=== PATIENT | male | born 1950 | race Caucasian/White ===

== ENCOUNTER 2017-10-31 17:56 | Inpatient (IN) | payer OTHER ==
[~2017-10-31] VITALS: Ht 172.7 cm; Wt 91.3 kg
[2017-10-31] MEDS ORDERED: TRIH2TAB3 PO (18:25)
[2017-10-31] MEDS ORDERED: LOSA1TAB42 PO (18:25)
[2017-10-31] MEDS ORDERED: HALO5TAB8 PO (18:25)
[2017-10-31] MEDS ORDERED: SERT50TA12 PO (18:25)
[2017-10-31] MEDS ORDERED: LURA80TA PO (18:25)
[2017-10-31] MEDS ORDERED: SIMV20TA6 PO (18:25)
[2017-10-31] MEDS ORDERED: FENO145T20 PO (18:25)
[2017-10-31] MEDS ORDERED: AMLO5TAB2 PO (18:25)
[2017-10-31] MEDS ORDERED: ASPI-1169 PO (18:25)
[2017-10-31 20:00] VITALS: BP 117/84
[2017-10-31] MEDS ORDERED: ACETAMINOPHEN 325 MG TABLET PO PRN (20:00)
[2017-10-31] MEDS ORDERED: MAGNESIUM HYDROXIDE 30 ML UDC PO PRN (20:00)
[2017-10-31] MEDS ORDERED: MAG HYDROX/AL HYDROX/SIMETH 30 ML UDC PO PRN (20:00)
[2017-10-31] MEDS: SIMVASTATIN 20 MG TABLET PO SCH (21:06)
[2017-10-31] MEDS: LORAZEPAM 0.5 MG TABLET PO PRN (21:06)
[2017-10-31] MEDS: ZOLPIDEM TARTRATE 5 MG TABLET PO PRN (22:14)
[2017-11-01] MEDS: LORAZEPAM 0.5 MG TABLET PO PRN (05:17)
[2017-11-01 07:16] LABS: BASOPHILS % (AUTO) 0.4 % (0.0-2.0); EOSINOPHILS # (AUTO) 0.1 /CMM (0.0-0.7); EOSINOPHILS % (AUTO) 1.7 % (0.0-6.0); HEMATOCRIT 40 % (39-51); HEMOGLOBIN 13.8 g/dL (13.5-17.5); LYMPHOCYTES # (AUTO) 2.3 /CMM (0.8-4.8); LYMPHOCYTES % (AUTO) 28.3 % (20.0-44.0); MEAN CORPUSCULAR HEMOGLOBIN 32 PG (26.0-33.0); MEAN CORPUSCULAR HGB CONC 35 g/dl (31.0-36.0); MEAN CORPUSCULAR VOLUME 91 fL (80-96); MONOCYTES # (AUTO) 0.8 /CMM (0.1-1.30); MONOCYTES % (AUTO) 9.2 % (2.0-12.0); NEUTROPHILS % (AUTO) 60.4 % (43.0-81.0); PLATELET COUNT (AUTO) 244 /CMM (150-450); RDW COEFFICIENT OF VARIATION 13.6 (11.5-15.0); RED BLOOD CELL COUNT(AUTO) 4.35 MIL/uL (4.5-6.0); WHITE BLOOD COUNT (AUTO) 8.2 K/uL (4.3-11.0)
[2017-11-01 07:32] LABS: ALBUMIN 3.7 g/dL (3.4-5.0); BILIRUBIN,TOTAL 0.9 mg/dL (0.2-1.0); CREATININE 0.9 mg/dL (0.6-1.3); POTASSIUM 3.3 mmol/L (3.5-5.1); TOTAL PROTEIN, SERUM 7.2 g/dL (6.4-8.2)
[2017-11-01 07:38] LABS: CHOLESTEROL 131 mg/dL (<200); HDL CHOLESTEROL 37 mg/dL (40-60); LDL 80 mg/dL (0-99); TRIGLYCERIDES 92 mg/dL (30-150)
[2017-11-01 08:08] VITALS: BP 160/95
[2017-11-01] MEDS: FENOFIBRATE NANOCRYS (145 MG) 145 MG TABLET PO SCH (08:38)
[2017-11-01] MEDS: HYDROCHLOROTHIAZIDE 25 MG TABLET PO SCH (08:39)
[2017-11-01] MEDS: LOSARTAN POTASSIUM 50 MG TABLET PO SCH (08:39)
[2017-11-01] MEDS: ASPIRIN 81 MG TAB.CHEW PO SCH (08:39)
[2017-11-01] MEDS: AMLODIPINE BESYLATE 5 MG TABLET PO SCH (08:39)
[2017-11-01] MEDS ORDERED: POTASSIUM CHLORIDE 20 MEQ TAB.PRT.SR PO SCH ×2 (10:00→11:30)
[2017-11-01] MEDS: SERTRALINE HCL 50 MG TABLET PO SCH (11:16)
[2017-11-01] MEDS: TRIHEXYPHENIDYL HCL 2 MG TABLET PO SCH ×2 (11:16→16:45)
[2017-11-01] MEDS: HALOPERIDOL 5 MG TABLET PO SCH ×3 (12:50→21:10)
[2017-11-01 16:15] VITALS: BP 155/78
[2017-11-01 16:23] VITALS: BP 155/78
[2017-11-01 20:00] VITALS: BP 153/88
[2017-11-01] MEDS: ZOLPIDEM TARTRATE 5 MG TABLET PO PRN (23:01)
[2017-11-01] MEDS: SIMVASTATIN 20 MG TABLET PO SCH (23:01)
[2017-11-02] MEDS: LORAZEPAM 0.5 MG TABLET PO PRN ×2 (00:37→10:05)
[2017-11-02 07:02] LABS: CALCIUM, SERUM 9.4 mg/dL (8.5-10.1); CREATININE 0.9 mg/dL (0.6-1.3); POTASSIUM 3.7 mmol/L (3.5-5.1)
[2017-11-02 08:00] VITALS: BP 145/96
[2017-11-02] MEDS: ASPIRIN 81 MG TAB.CHEW PO SCH (08:54)
[2017-11-02] MEDS: FENOFIBRATE NANOCRYS (145 MG) 145 MG TABLET PO SCH (08:54)
[2017-11-02] MEDS: HALOPERIDOL 5 MG TABLET PO SCH ×4 (08:54→20:51)
[2017-11-02] MEDS: TRIHEXYPHENIDYL HCL 2 MG TABLET PO SCH ×2 (08:54→17:29)
[2017-11-02] MEDS: AMLODIPINE BESYLATE 5 MG TABLET PO SCH (08:55)
[2017-11-02] MEDS: HYDROCHLOROTHIAZIDE 25 MG TABLET PO SCH (08:55)
[2017-11-02] MEDS: LOSARTAN POTASSIUM 50 MG TABLET PO SCH (08:55)
[2017-11-02] MEDS: SERTRALINE HCL 50 MG TABLET PO SCH (08:56)
[2017-11-02 16:00] VITALS: BP 147/76
[2017-11-02] MEDS: SIMVASTATIN 20 MG TABLET PO SCH (21:02)
[2017-11-02] MEDS: ZOLPIDEM TARTRATE 5 MG TABLET PO PRN (21:33)
[2017-11-03 07:21] LABS: CALCIUM, SERUM 9.4 mg/dL (8.5-10.1); CREATININE 0.9 mg/dL (0.6-1.3); POTASSIUM 3.7 mmol/L (3.5-5.1)
[2017-11-03 08:18] VITALS: BP 145/78
[2017-11-03] MEDS: SERTRALINE HCL 50 MG TABLET PO SCH (09:01)
[2017-11-03] MEDS: TRIHEXYPHENIDYL HCL 2 MG TABLET PO SCH ×2 (09:01→17:54)
[2017-11-03] MEDS: HALOPERIDOL 5 MG TABLET PO SCH ×4 (09:02→21:29)
[2017-11-03] MEDS: AMLODIPINE BESYLATE 5 MG TABLET PO SCH (09:02)
[2017-11-03] MEDS: ASPIRIN 81 MG TAB.CHEW PO SCH (09:02)
[2017-11-03] MEDS: FENOFIBRATE NANOCRYS (145 MG) 145 MG TABLET PO SCH (09:02)
[2017-11-03] MEDS: HYDROCHLOROTHIAZIDE 25 MG TABLET PO SCH (09:02)
[2017-11-03] MEDS: LOSARTAN POTASSIUM 50 MG TABLET PO SCH (09:04)
[2017-11-03 16:00] VITALS: BP 122/62
[2017-11-03 20:16] VITALS: BP 148/88
[2017-11-03] MEDS: SIMVASTATIN 20 MG TABLET PO SCH (21:29)
[2017-11-04] MEDS: LORAZEPAM 0.5 MG TABLET PO PRN ×2 (03:18→14:44)
[2017-11-04 07:54] LABS: CALCIUM, SERUM 9.4 mg/dL (8.5-10.1); CREATININE 0.9 mg/dL (0.6-1.3); POTASSIUM 3.5 mmol/L (3.5-5.1)
[2017-11-04 08:04] VITALS: BP 142/82
[2017-11-04] MEDS: TRIHEXYPHENIDYL HCL 2 MG TABLET PO SCH ×2 (08:18→16:30)
[2017-11-04] MEDS: ASPIRIN 81 MG TAB.CHEW PO SCH (08:19)
[2017-11-04] MEDS: LOSARTAN POTASSIUM 50 MG TABLET PO SCH (08:19)
[2017-11-04] MEDS: HALOPERIDOL 5 MG TABLET PO SCH ×3 (08:19→16:30)
[2017-11-04] MEDS: FENOFIBRATE NANOCRYS (145 MG) 145 MG TABLET PO SCH (08:19)
[2017-11-04] MEDS: AMLODIPINE BESYLATE 5 MG TABLET PO SCH (08:19)
[2017-11-04] MEDS: SERTRALINE HCL 50 MG TABLET PO SCH (08:19)
[2017-11-04] MEDS: HYDROCHLOROTHIAZIDE 25 MG TABLET PO SCH (08:19)
[2017-11-04 16:00] VITALS: BP 123/71
[2017-11-04] MEDS ORDERED: TETANUS,DIPHTHERIA TOXD PED/PF 0.5 ML VIAL IM ONE (16:00)
[2017-11-04] MEDS ORDERED: LIDOCAINE HCL/PF 1% 30 ML SDV IJ ONE (16:21)
[2017-11-04] MEDS: AMOX/CLAVULANATE 875 MG TABLET PO SCH (16:30)
[2017-11-04] MEDS: NEOMY SULF/BACITRAC ZN/POLY 15 GM TUBE TP SCH (16:37)
[2017-11-04 19:32] VITALS: BP 141/78
[2017-11-04] MEDS: SIMVASTATIN 20 MG TABLET PO SCH (21:18)
[2017-11-04] MEDS: ZOLPIDEM TARTRATE 5 MG TABLET PO PRN (21:18)
[2017-11-05] MEDS: LORAZEPAM 0.5 MG TABLET PO PRN (01:56)
[2017-11-05 07:17] LABS: CALCIUM, SERUM 9.1 mg/dL (8.5-10.1); CREATININE 0.9 mg/dL (0.6-1.3); POTASSIUM 3.4 mmol/L (3.5-5.1)
[2017-11-05 08:00] VITALS: BP 144/78
[2017-11-05] MEDS: TRIHEXYPHENIDYL HCL 2 MG TABLET PO SCH ×4 (08:35→20:32)
[2017-11-05] MEDS: SERTRALINE HCL 50 MG TABLET PO SCH (08:36)
[2017-11-05] MEDS: ASPIRIN 81 MG TAB.CHEW PO SCH (08:36)
[2017-11-05] MEDS: FENOFIBRATE NANOCRYS (145 MG) 145 MG TABLET PO SCH (08:36)
[2017-11-05] MEDS: HALOPERIDOL 5 MG TABLET PO SCH ×4 (08:36→20:32)
[2017-11-05] MEDS: AMOX/CLAVULANATE 875 MG TABLET PO SCH ×2 (08:36→18:07)
[2017-11-05] MEDS: AMLODIPINE BESYLATE 5 MG TABLET PO SCH (08:37)
[2017-11-05] MEDS: NEOMY SULF/BACITRAC ZN/POLY 15 GM TUBE TP SCH (08:38)
[2017-11-05] MEDS: HYDROCHLOROTHIAZIDE 25 MG TABLET PO SCH (08:38)
[2017-11-05] MEDS: LOSARTAN POTASSIUM 50 MG TABLET PO SCH (08:38)
[2017-11-05] MEDS ORDERED: Magnesium 1GM/D5W 100ML PREMIX 100 ML IV SCH (11:45)
[2017-11-05] MEDS ORDERED: POTASSIUM CHLORIDE 20 MEQ TAB.PRT.SR PO SCH (12:00)
[2017-11-05 16:00] VITALS: BP 160/86
[2017-11-05] MEDS: MUPIROCIN OINT 2% 22 GM TUBE TP SCH ×2 (18:08→21:21)
[2017-11-05 20:53] VITALS: BP 143/78
[2017-11-05] MEDS: ZOLPIDEM TARTRATE 5 MG TABLET PO PRN (21:23)
[2017-11-05] MEDS: SIMVASTATIN 20 MG TABLET PO SCH (21:23)
[2017-11-06] MEDS: LORAZEPAM 0.5 MG TABLET PO PRN ×3 (04:01→23:44)
[2017-11-06 07:56] LABS: CALCIUM, SERUM 8.9 mg/dL (8.5-10.1); CREATININE 0.8 mg/dL (0.6-1.3); POTASSIUM 4.2 mmol/L (3.5-5.1)
[2017-11-06 08:00] VITALS: BP 132/86
[2017-11-06] MEDS: FENOFIBRATE NANOCRYS (145 MG) 145 MG TABLET PO SCH (08:20)
[2017-11-06] MEDS: ASPIRIN 81 MG TAB.CHEW PO SCH (08:20)
[2017-11-06] MEDS: AMOX/CLAVULANATE 875 MG TABLET PO SCH ×2 (08:20→16:30)
[2017-11-06] MEDS: TRIHEXYPHENIDYL HCL 2 MG TABLET PO SCH ×4 (08:20→20:31)
[2017-11-06] MEDS: HALOPERIDOL 5 MG TABLET PO SCH ×4 (08:20→20:31)
[2017-11-06] MEDS: SERTRALINE HCL 50 MG TABLET PO SCH (08:20)
[2017-11-06] MEDS: LOSARTAN POTASSIUM 50 MG TABLET PO SCH (08:21)
[2017-11-06] MEDS: AMLODIPINE BESYLATE 5 MG TABLET PO SCH (08:21)
[2017-11-06] MEDS: HYDROCHLOROTHIAZIDE 25 MG TABLET PO SCH (08:22)
[2017-11-06] MEDS: MUPIROCIN OINT 2% 22 GM TUBE TP SCH ×2 (08:22→20:33)
[2017-11-06 17:14] VITALS: BP 104/57
[2017-11-06 21:14] VITALS: BP 155/63
[2017-11-06] MEDS: SIMVASTATIN 20 MG TABLET PO SCH (21:20)
[2017-11-06] MEDS: ZOLPIDEM TARTRATE 5 MG TABLET PO PRN (21:21)
[2017-11-07 07:39] LABS: CALCIUM, SERUM 8.7 mg/dL (8.5-10.1); CREATININE 0.8 mg/dL (0.6-1.3); POTASSIUM 3.6 mmol/L (3.5-5.1)
[2017-11-07 08:00] VITALS: BP 140/64
[2017-11-07] MEDS: LOSARTAN POTASSIUM 50 MG TABLET PO SCH ×2 (08:02→10:57)
[2017-11-07] MEDS: AMOX/CLAVULANATE 875 MG TABLET PO SCH ×2 (08:02→16:38)
[2017-11-07] MEDS: AMLODIPINE BESYLATE 5 MG TABLET PO SCH ×2 (08:03→08:15)
[2017-11-07] MEDS: FENOFIBRATE NANOCRYS (145 MG) 145 MG TABLET PO SCH (08:03)
[2017-11-07] MEDS: HALOPERIDOL 5 MG TABLET PO SCH ×3 (08:03→16:43)
[2017-11-07] MEDS: TRIHEXYPHENIDYL HCL 2 MG TABLET PO SCH ×5 (08:04→22:20)
[2017-11-07] MEDS: SERTRALINE HCL 50 MG TABLET PO SCH (08:04)
[2017-11-07] MEDS: ASPIRIN 81 MG TAB.CHEW PO SCH (08:04)
[2017-11-07] MEDS: MUPIROCIN OINT 2% 22 GM TUBE TP SCH ×2 (08:05→21:00)
[2017-11-07] MEDS: HYDROCHLOROTHIAZIDE 25 MG TABLET PO SCH (08:05)
[2017-11-07 16:17] VITALS: BP 129/63
[2017-11-07 20:00] VITALS: BP 142/80
[2017-11-07] MEDS: SIMVASTATIN 20 MG TABLET PO SCH ×2 (22:22→22:24)
[2017-11-07] MEDS: ZOLPIDEM TARTRATE 5 MG TABLET PO PRN (22:26)
[2017-11-08] MEDS: LORAZEPAM 0.5 MG TABLET PO PRN (01:33)
[2017-11-08 08:00] VITALS: BP 145/63
[2017-11-08] MEDS: MUPIROCIN OINT 2% 22 GM TUBE TP SCH ×2 (08:33→20:28)
[2017-11-08] MEDS: TRIHEXYPHENIDYL HCL 2 MG TABLET PO SCH ×6 (08:34→20:27)
[2017-11-08] MEDS: FENOFIBRATE NANOCRYS (145 MG) 145 MG TABLET PO SCH (08:34)
[2017-11-08] MEDS: AMOX/CLAVULANATE 875 MG TABLET PO SCH ×3 (08:35→17:30)
[2017-11-08] MEDS: AMLODIPINE BESYLATE 5 MG TABLET PO SCH (08:35)
[2017-11-08] MEDS: SERTRALINE HCL 50 MG TABLET PO SCH (08:35)
[2017-11-08] MEDS: HYDROCHLOROTHIAZIDE 25 MG TABLET PO SCH (08:36)
[2017-11-08] MEDS: ASPIRIN 81 MG TAB.CHEW PO SCH (08:36)
[2017-11-08] MEDS: LOSARTAN POTASSIUM 50 MG TABLET PO SCH (08:36)
[2017-11-08] MEDS: HALOPERIDOL 5 MG TABLET PO SCH ×4 (08:36→17:30)
[2017-11-08 16:00] VITALS: BP 118/67
[2017-11-08 20:00] VITALS: BP 129/64
[2017-11-08] MEDS: SIMVASTATIN 20 MG TABLET PO SCH (21:11)
[2017-11-08] MEDS: QUETIAPINE FUMARATE 100 MG TABLET PO SCH (21:12)
[2017-11-08] MEDS: ZOLPIDEM TARTRATE 5 MG TABLET PO PRN (23:00)
[2017-11-09 08:00] VITALS: BP 137/73
[2017-11-09] MEDS: HALOPERIDOL 5 MG TABLET PO SCH ×3 (08:57→16:59)
[2017-11-09] MEDS: SERTRALINE HCL 50 MG TABLET PO SCH (08:58)
[2017-11-09] MEDS: AMOX/CLAVULANATE 875 MG TABLET PO SCH (08:58)
[2017-11-09] MEDS: ASPIRIN 81 MG TAB.CHEW PO SCH (08:58)
[2017-11-09] MEDS: TRIHEXYPHENIDYL HCL 2 MG TABLET PO SCH ×4 (08:58→21:16)
[2017-11-09] MEDS: LOSARTAN POTASSIUM 50 MG TABLET PO SCH (08:58)
[2017-11-09] MEDS: AMLODIPINE BESYLATE 5 MG TABLET PO SCH (08:58)
[2017-11-09] MEDS: HYDROCHLOROTHIAZIDE 25 MG TABLET PO SCH (08:58)
[2017-11-09] MEDS: FENOFIBRATE NANOCRYS (145 MG) 145 MG TABLET PO SCH (08:58)
[2017-11-09] MEDS: MUPIROCIN OINT 2% 22 GM TUBE TP SCH ×2 (09:00→21:16)
[2017-11-09 16:00] VITALS: BP 111/59
[2017-11-09 20:00] VITALS: BP 129/67
[2017-11-09] MEDS: SIMVASTATIN 20 MG TABLET PO SCH (21:16)
[2017-11-09] MEDS: QUETIAPINE FUMARATE 100 MG TABLET PO SCH (21:16)
[2017-11-10 08:00] VITALS: BP 155/57
[2017-11-10] MEDS: LOSARTAN POTASSIUM 50 MG TABLET PO SCH (08:45)
[2017-11-10] MEDS: ASPIRIN 81 MG TAB.CHEW PO SCH (08:45)
[2017-11-10] MEDS: FENOFIBRATE NANOCRYS (145 MG) 145 MG TABLET PO SCH (08:45)
[2017-11-10] MEDS: TRIHEXYPHENIDYL HCL 2 MG TABLET PO SCH ×4 (08:45→20:02)
[2017-11-10] MEDS: HALOPERIDOL 5 MG TABLET PO SCH ×3 (08:45→17:06)
[2017-11-10] MEDS: SERTRALINE HCL 50 MG TABLET PO SCH (08:45)
[2017-11-10] MEDS: AMLODIPINE BESYLATE 5 MG TABLET PO SCH (08:46)
[2017-11-10] MEDS: HYDROCHLOROTHIAZIDE 25 MG TABLET PO SCH (08:46)
[2017-11-10] MEDS: MUPIROCIN OINT 2% 22 GM TUBE TP SCH ×2 (08:48→20:04)
[2017-11-10 16:00] VITALS: BP 119/64
[2017-11-10 19:56] VITALS: BP 136/59
[2017-11-10] MEDS: SIMVASTATIN 20 MG TABLET PO SCH (21:11)
[2017-11-10] MEDS: QUETIAPINE FUMARATE 100 MG TABLET PO SCH (21:11)
[2017-11-10] MEDS: ZOLPIDEM TARTRATE 5 MG TABLET PO PRN (21:27)
[2017-11-11 08:00] VITALS: BP 133/66
[2017-11-11] MEDS: FENOFIBRATE NANOCRYS (145 MG) 145 MG TABLET PO SCH (08:32)
[2017-11-11] MEDS: SERTRALINE HCL 50 MG TABLET PO SCH (08:32)
[2017-11-11] MEDS: ASPIRIN 81 MG TAB.CHEW PO SCH (08:33)
[2017-11-11] MEDS: HALOPERIDOL 5 MG TABLET PO SCH ×3 (08:33→17:11)
[2017-11-11] MEDS: TRIHEXYPHENIDYL HCL 2 MG TABLET PO SCH ×4 (08:33→21:31)
[2017-11-11] MEDS: HYDROCHLOROTHIAZIDE 25 MG TABLET PO SCH (08:34)
[2017-11-11] MEDS: LOSARTAN POTASSIUM 50 MG TABLET PO SCH (08:35)
[2017-11-11] MEDS: MUPIROCIN OINT 2% 22 GM TUBE TP SCH ×2 (08:35→21:32)
[2017-11-11] MEDS: AMLODIPINE BESYLATE 5 MG TABLET PO SCH (08:35)
[2017-11-11] MEDS: LORAZEPAM 0.5 MG TABLET PO PRN (14:53)
[2017-11-11 16:00] VITALS: BP 116/65
[2017-11-11 19:58] VITALS: BP 150/65
[2017-11-11] MEDS: QUETIAPINE FUMARATE 100 MG TABLET PO SCH (21:31)
[2017-11-11] MEDS: SIMVASTATIN 20 MG TABLET PO SCH (21:31)
[2017-11-11] MEDS: ZOLPIDEM TARTRATE 5 MG TABLET PO PRN (21:34)
[2017-11-12 08:00] VITALS: BP 115/64
[2017-11-12] MEDS: HALOPERIDOL 5 MG TABLET PO SCH ×3 (08:15→17:06)
[2017-11-12] MEDS: ASPIRIN 81 MG TAB.CHEW PO SCH (08:16)
[2017-11-12] MEDS: HYDROCHLOROTHIAZIDE 25 MG TABLET PO SCH (08:16)
[2017-11-12] MEDS: SERTRALINE HCL 50 MG TABLET PO SCH (08:16)
[2017-11-12] MEDS: TRIHEXYPHENIDYL HCL 2 MG TABLET PO SCH ×4 (08:16→21:00)
[2017-11-12] MEDS: AMLODIPINE BESYLATE 5 MG TABLET PO SCH (08:16)
[2017-11-12] MEDS: FENOFIBRATE NANOCRYS (145 MG) 145 MG TABLET PO SCH (08:16)
[2017-11-12] MEDS: MUPIROCIN OINT 2% 22 GM TUBE TP SCH ×2 (08:17→21:02)
[2017-11-12] MEDS: LOSARTAN POTASSIUM 50 MG TABLET PO SCH (08:57)
[2017-11-12 16:00] VITALS: BP 145/77
[2017-11-12] MEDS: LORAZEPAM 0.5 MG TABLET PO PRN (17:06)
[2017-11-12] MEDS: QUETIAPINE FUMARATE 100 MG TABLET PO SCH (21:00)
[2017-11-12] MEDS: SIMVASTATIN 20 MG TABLET PO SCH (21:00)
[2017-11-12 21:06] VITALS: BP 142/75
[2017-11-12] MEDS: ZOLPIDEM TARTRATE 5 MG TABLET PO PRN (21:26)
[2017-11-13 08:00] VITALS: BP 138/77
[2017-11-13] MEDS: HALOPERIDOL 5 MG TABLET PO SCH ×2 (08:17→12:28)
[2017-11-13] MEDS: TRIHEXYPHENIDYL HCL 2 MG TABLET PO SCH ×2 (08:17→12:28)
[2017-11-13] MEDS: SERTRALINE HCL 50 MG TABLET PO SCH (08:17)
[2017-11-13] MEDS: AMLODIPINE BESYLATE 5 MG TABLET PO SCH (08:18)
[2017-11-13] MEDS: HYDROCHLOROTHIAZIDE 25 MG TABLET PO SCH (08:18)
[2017-11-13] MEDS: FENOFIBRATE NANOCRYS (145 MG) 145 MG TABLET PO SCH (08:18)
[2017-11-13] MEDS: ASPIRIN 81 MG TAB.CHEW PO SCH (08:18)
[2017-11-13] MEDS: MUPIROCIN OINT 2% 22 GM TUBE TP SCH (08:23)
[2017-11-13 08:42] VITALS: BP 138/77
[2017-11-13] MEDS: LOSARTAN POTASSIUM 50 MG TABLET PO SCH (08:42)
== END 2017-11-13 15:20 | disposition home health service (06) | DRG 885 ==
LOC: GPS 17:56
PROVIDERS: ADMIT Psychiatry & Neurology Psychiatry; ATTEND Psychiatry & Neurology Psychiatry
DX: F20.0 Paranoid schizophrenia (principal); F03.90 Unspecified dementia, unspecified severity, without behavioral disturbance, psychotic disturbance, mood disturbance, and anxiety; F29 Unspecified psychosis not due to a substance or known physiological condition; F41.1 Generalized anxiety disorder; F32.9 Major depressive disorder, single episode, unspecified; Z81.8 Family history of other mental and behavioral disorders; Z73.6 Limitation of activities due to disability; E78.5 Hyperlipidemia, unspecified; E87.6 Hypokalemia; I10 Essential (primary) hypertension; I25.10 Atherosclerotic heart disease of native coronary artery without angina pectoris; Z79.899 Other long term (current) drug therapy; Z79.82 Long term (current) use of aspirin; S61.512A Laceration without foreign body of left wrist, initial encounter; Y92.009 Unspecified place in unspecified non-institutional (private) residence as the place of occurrence of the external cause; X78.8XXA Intentional self-harm by other sharp object, initial encounter
CPT/HCPCS: 36415; 80048-TC; 80053-TC; 80061-TC; 84425; 85025-TC; 87081-TC; 90702-TC; A6402; J3475; J3490